=== PATIENT | female | born 2000 | race Caucasian/White ===

== ENCOUNTER 2019-04-06 09:03 | Inpatient (IN) | payer BC, OTHER ==
[~2019-04-06] VITALS: Ht 177.8 cm; Wt 123.0 kg
[~2019-04-06 09:03] MED LIST: ABILIFY5 MG PO; BUSPIRONE HCL10 MG PO; BUSPIRONE HCL5 MG PO; DOXYCYCLINE HY100 MG PO; FLUOXETINE HCL20 MG PO; IBUPROFEN600 MG PO; LEVOTHYROXINE25 MCG PO; MULTI VITAMIN1 EACH PO; ONDANSETRON ODT8 MG PO; PENICILLIN V P250 MG PO; VITAMIN B COMP1 EACH PO; ZYRTEC10 MG PO
[2019-04-07] MEDS ORDERED: VITAFOL-OB+DHA1 EACH PO (01:03)
[2019-04-07] MEDS ORDERED: IRON325 M1 PO (01:05)
--- NOTE | 2019-04-07 07:02 | PR ---
[facility] [address], [place] [address] Signed Progress Notes IP Datetime Report Generated by CPN: 04/07/2019 07:02 PROGRESS NOTES: [id number] Impression: Reassuring heart rate Plan: Continue present management; Cervical Ripening Informed Consent Obtain: Induction of Labor VITAL SIGNS: [id number] Vital Signs: Reviewed; Within Normal Limits EXAM: [id number] Dilatation: 1.0 Effacement: 25 Station: -3 Uterine Contractions: irritability MEMBRANES: [id number] Comments: Pt is pleasant 18 yr old w/ IUP @ 39w6d who presents to L_D for scheduled EIOL. complicated by obesity, anxiety/mood disorder, Rh neg s/p Rhogam, and GBS positive. Pt presented for cervical ripening and has received cytotec. Cervix not yet ripe. +FM, no bleeding, no loss of fluids. Tolerating induction well. Plan: continue cervical ripening. Continue light diet until active labor. Will start PCN per protocol when in active labor. All questions answered Fetus A: [id number] FHR Baseline: 125 Variability: Moderate 6-25bpm Accelerations: 15X15 Decelerations: None FHR Category: Category I Comments on Fetus A: No evidence of metabolic acidosis Fetus B: [id number] Signing Physician: Tiny Luque DO Copies: ~ *Electronically Signed* 04/07/19 0702 TINY LUQUE DO PATIENT NAME: BRUCE GOLDMAN PROGRESS NOTE DATE OF : 98 PHYSICIAN: TINY LUQUE DO [facility] #: [id number] REPORT IS CONFIDENTIAL AND NOT TO BE RELEASED WITHOUT AUTHORIZATION
--- NOTE | 2019-04-07 13:54 | PR ---
[facility] [address] [facility] [place], [place] [address] Signed Progress Notes IP Datetime Report Generated by CPN: 04/07/2019 13:54 PROGRESS NOTES: [id number] Impression: Reassuring heart rate Plan: Anesthesia consult Informed Consent Obtain: Induction of Labor VITAL SIGNS: [id number] Vital Signs: Reviewed; Within Normal Limits EXAM: [id number] Dilatation: 1.5 Effacement: 50 Station: -2 Uterine Contractions: irritability MEMBRANES: [id number] Comments: Pt becoming more uncomfortable w/ induction. Strongly requesting epidural. Anesthesia notified and here to review w/ pt. Fetus A: [id number] FHR Baseline: 120 Variability: Moderate 6-25bpm Accelerations: 15X15 Decelerations: None FHR Category: Category I Comments on Fetus A: No evidence of metabolic acidosis Fetus B: [id number] Signing Physician: Tiny Luque DO Copies: ~ *Electronically Signed* 04/07/19 1354 TINY LUQUE DO PATIENT NAME: KEV GOLDMANLY GANESH PROGRESS NOTE DATE OF : 98 PHYSICIAN: TINY LUQUE DO [facility] #: [id number] REPORT IS CONFIDENTIAL AND NOT TO BE RELEASED WITHOUT AUTHORIZATION
--- NOTE | 2019-04-07 21:43 | PR ---
[facility] [address] [facility] [place], [place] [address] Signed Progress Notes IP Datetime Report Generated by CPN: 04/07/2019 21:43 PROGRESS NOTES: [id number] Impression: Normal progression of labor Procedures: Sterile Vag Exam Plan: Anticipate Vaginal Delivery Informed Consent Obtain: Vaginal Delivery VITAL SIGNS: [id number] Vital Signs: Reviewed; Within Normal Limits EXAM: [id number] Dilatation: 10.0 Effacement: 100 Station: 2 Uterine Contractions: q2-3 minutes MEMBRANES: [id number] Comments: Pt seen and examined. Pt has made rapid cervical change and is now complete +2 station. Comfortable w/ epidural. FHT reassuring. Prepare for . Reviewed 2nd stage of labor w/ pt and all questions answered Fetus A: [id number] FHR Baseline: 125 Variability: Moderate 6-25bpm Accelerations: 15X15 Decelerations: Early; Variable FHR Category: Category II Presentation: Vertex Comments on Fetus A: No evidence of metabolic acidosis Fetus B: [id number] Signing Physician: Tiny Luque DO Copies: ~ *Electronically Signed* 04/07/19 2143 TINY LUQUE DO PATIENT NAME: BRUCE GOLDMAN PROGRESS NOTE DATE OF : 98 PHYSICIAN: TINY LUQUE DO RPT #: [id number] REPORT IS CONFIDENTIAL AND NOT TO BE RELEASED WITHOUT AUTHORIZATION
--- NOTE | 2019-04-08 11:28 | PR ---
[facility] [address] [facility] [place], [place] [address] Signed PP Progress Notes Datetime Report Generated by CPN: 04/08/2019 11:28 SUBJECTIVE: [id number] Pain: Within normal limits Nausea/Vomiting: Denies Flatus: Yes Bowel Movement: No Vital Signs: [id number] EXAM: [id number] Cardiovascular: Normal Respiratory: Normal Abdomen/Uterus: Normal Lochia: Normal Vulva/Perineum: Not Done Breasts: Not Done CVA Tenderness: Normal Extremities: Normal Incision: Not Applicable Progress: Normal Exam Comments: Fundus firm U-2 nontender IMPRESSION/PLAN/PROCEDURES: [id number] Impression: Normal progression Plan: Continue present management Progress Notes: Pt seen and examined. Doing well. Ambulating voiding and tolerating full diet. well. Pain and bleeding minimal. No other questions or concerns. Continue routine pp care. Hgb 11.8. Rhogam prior to discharge (baby A+) Signing Physician: Tiny Luque DO Copies: ~ *Electronically Signed* 04/08/19 1128 TINY LUQUE DO PATIENT NAME: SUSIBRUCE PROGRESS NOTE DATE OF : 98 PHYSICIAN: TINY LUQUE DO RPT #: [id number] REPORT IS CONFIDENTIAL AND NOT TO BE RELEASED WITHOUT AUTHORIZATION
--- NOTE | 2019-04-09 08:22 | PR ---
[facility] [address] [facility] [place], [place] [address] Signed PP Progress Notes Datetime Report Generated by CPN: 04/09/2019 08:22 SUBJECTIVE: [id number] Pain: Within normal limits Nausea/Vomiting: Denies Flatus: Yes Bowel Movement: No Vital Signs: [id number] Vital Signs: Reviewed; Within Normal Limits EXAM: [id number] Cardiovascular: Normal Respiratory: Normal Abdomen/Uterus: Normal Lochia: Normal Vulva/Perineum: Not Done Breasts: Not Done CVA Tenderness: Normal Extremities: Normal Incision: Not Applicable Progress: Normal Exam Comments: Fundus firm U -2 nontender. Hgb 11.8 IMPRESSION/PLAN/PROCEDURES: [id number] Impression: Normal progression Plan: Discharge Progress Notes: Pt seen and examined. Doing well. Ambulating, voiding, and tolerating full diet. Pain and lochia minimal. improved with some extra coaching by RN. Hooper d/pernell home today. F/U Dr. Luque 2 wks Signing Physician: Tiny Luque DO Copies: ~ *Electronically Signed* 04/09/19 0822 TINY LUQUE DO PATIENT NAME: BRUCE GOLDMAN PROGRESS NOTE DATE OF : 98 PHYSICIAN: TINY LUQUE DO RPT #: [id number] REPORT IS CONFIDENTIAL AND NOT TO BE RELEASED WITHOUT AUTHORIZATION
== END 2019-04-09 12:20 | disposition home or self-care (01) | DRG 806 ==
LOC: FBC 04-07 00:01
PROVIDERS: ADMIT Obstetrics & Gynecology
PROC: 10E0XZZ Delivery of Products of Conception, External Approach (ICD-10-PCS; principal; 2019-04-07)
PROC: 0KQM0ZZ Repair Perineum Muscle, Open Approach (ICD-10-PCS; 2019-04-07)
PROC: 3E0P7VZ Introduction of Hormone into Female Reproductive, Via Natural or Artificial Opening (ICD-10-PCS; 2019-04-07)
PROC: 00HU33Z Insertion of Infusion Device into Spinal Canal, Percutaneous Approach (ICD-10-PCS; 2019-04-07)
PROC: 3E0R3BZ Introduction of Anesthetic Agent into Spinal Canal, Percutaneous Approach (ICD-10-PCS; 2019-04-07)
PROC: 3E0234Z Introduction of Serum, Toxoid and Vaccine into Muscle, Percutaneous Approach (ICD-10-PCS; 2019-04-08)
DX: O62.3 Precipitate labor (principal); O99.324 Drug use complicating childbirth; Z37.0 Single live birth; O70.1 Second degree perineal laceration during delivery; Z3A.39 39 weeks gestation of pregnancy; O99.824 Streptococcus B carrier state complicating childbirth; O76 Abnormality in fetal heart rate and rhythm complicating labor and delivery; O99.214 Obesity complicating childbirth; E66.9 Obesity, unspecified; O99.344 Other mental disorders complicating childbirth; F41.9 Anxiety disorder, unspecified; O99.284 Endocrine, nutritional and metabolic diseases complicating childbirth; E03.9 Hypothyroidism, unspecified; F12.90 Cannabis use, unspecified, uncomplicated; O26.893 Other specified pregnancy related conditions, third trimester; Z67.11 Type A blood, Rh negative; Z87.891 Personal history of nicotine dependence; Z88.1 Allergy status to other antibiotic agents
CPT/HCPCS: 01960; 36415; 83030; 85027; 86850; 86900; 86901; J2405; J2540; J2590; J2790; J2795; J7060; J7120

== ENCOUNTER 2020-10-18 03:32 | Emergency (ER) | payer BC ==
[~2020-10-18] VITALS: Ht 177.8 cm; Wt 108.9 kg
[~2020-10-18 03:32] MED LIST changes: +IRON325 M1 PO; +VITAFOL-OB+DHA1 EACH PO
--- OUTSIDE RECORDS SUMMARY | 2020-10-18 03:34 | XMS ---
PreManage Notification: BRUCE GOLDMAN Security Acetylene Burner Events No recent Security Events currently on file [facility] There are no care providers on record at this time. Bebo has no Care Guidelines for this patient. Jeanne VISIT COUNT (12 MO.) 1 [facility] TOTAL 1 NOTE: Visits indicate total known visits. ED/UCC VISIT TRACKING (12 MO.) 10/18/2020 03:33 [facility] [place] TYPE: Emergency COMPLAINT: - ABDOMINAL PAIN INPATIENT VISIT TRACKING (12 MO.) No inpatient visits to display in this time frame [email or web address]
[2020-10-18] MEDS ORDERED: LITHIUM CARBON300 M2 PO (04:04)
[2020-10-18] MEDS ORDERED: FLUOXETINE HCL40 MG PO (04:04)
== END 2020-10-18 07:42 | disposition home or self-care (01) ==
LOC: ED 03:32
DX: N83.202 Unspecified ovarian cyst, left side (principal); E03.9 Hypothyroidism, unspecified; F17.200 Nicotine dependence, unspecified, uncomplicated; Z88.8 Allergy status to other drugs, medicaments and biological substances; Z88.1 Allergy status to other antibiotic agents; Z91.010 Allergy to peanuts; Z79.899 Other long term (current) drug therapy
CPT/HCPCS: 74177; 76830; 76856; 80053; 81001; 83690; 84703; 85025; 87491; 87591; 96372; 99284-25; J1885; Q9967

== ENCOUNTER 2020-11-03 02:46 | Emergency (ER) | payer BC, OTHER ==
[~2020-11-03] VITALS: Ht 177.8 cm; Wt 108.9 kg
[~2020-11-03 02:46] MED LIST changes: +FLUOXETINE HCL40 MG PO; +LITHIUM CARBON300 M2 PO
--- OUTSIDE RECORDS SUMMARY | 2020-11-03 02:48 | XMS ---
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 ELester VISIT COUNT (12 MO.) 2 [facility] TOTAL 2 NOTE: Visits indicate total known visits. ED/UCC VISIT TRACKING (12 MO.) 11/03/2020 02:47 [facility] [place] TYPE: Emergency COMPLAINT: - MEDICAL CLEARANCE 10/18/2020 03:33 [facility] [place] TYPE: Emergency COMPLAINT: - ABDOMINAL PAIN DIAGNOSES: - Lower abdominal pain, unspecified - Allergy status to other drugs, medicaments and biological substances - Other intermediate manager (current) drug therapy - Hypothyroidism, unspecified - Allergy to peanuts - Unspecified ovarian cyst, left side - Allergy status to other antibiotic agents - Nicotine dependence, unspecified, uncomplicated INPATIENT VISIT TRACKING (12 MO.) No inpatient visits to display in this time frame [email or web address]
[2020-11-03] MEDS ORDERED: LITHOBID300 MG PO (08:24)
== END 2020-11-03 11:00 | disposition home or self-care (01) ==
LOC: ED 02:46
DX: F32.9 Major depressive disorder, single episode, unspecified (principal); R45.851 Suicidal ideations; E03.9 Hypothyroidism, unspecified; F17.200 Nicotine dependence, unspecified, uncomplicated; Z88.8 Allergy status to other drugs, medicaments and biological substances; Z88.1 Allergy status to other antibiotic agents; Z91.010 Allergy to peanuts; Z79.899 Other long term (current) drug therapy
CPT/HCPCS: 80053; 80176; 81001; 84443; 85025; 99285

== ENCOUNTER 2024-02-15 10:43 | Emergency (ER) | payer OTHER ==
[~2024-02-15] VITALS: Ht 177.8 cm; Wt 82.0 kg
[~2024-02-15 10:43] MED LIST changes: +DEXTROAMP-AMPHE20 MG PO; +HYDROXYZINE HCL25 MG PO; +LITHOBID300 MG PO; +NAPROSYN500 MG PO
--- OUTSIDE RECORDS SUMMARY | 2024-02-15 10:46 | XMS ---
PreManage Notification: BRUCE GOLDMAN Security Impregnator And Drier Events No recent Security Events currently on file CRITERIA MET - [employer] CARE PROVIDERS ESTEBAN ABBOTT Physician Diesel Mechanic Construction 10/19/2020-Current PHONE: Unknown -Ramiro- Dentist: Licensing Registration Examiner [facility] PHONE: [phone] Bebo has no Care Guidelines for this patient. Jeanne VISIT COUNT (12 MO.) Scott Thomas TOTAL 3 NOTE: Visits indicate total known visits. ED/UCC VISIT TRACKING (12 MO.) 02/15/2024 10:43 [facility] [place] TYPE: Emergency COMPLAINT: - LACERATION FOREARM 01/13/2024 21:11 [facility] [place] TYPE: Emergency COMPLAINT: - POSS PANIC ATTACK DIAGNOSES: - Allergy status to other drugs, medicaments and biological substances - Nicotine dependence, unspecified, uncomplicated - Panic disorder [episodic paroxysmal anxiety] - Reaction to severe stress, unspecified 11/26/2023 12:[address] [facility] [place] TYPE: Emergency COMPLAINT: - R RIB PAIN/ NO INJ DIAGNOSES: - Allergy status to other antibiotic agents - Allergy status to other drugs, medicaments and biological substances - Hidradenitis suppurativa - Hypothyroidism, unspecified - Nicotine dependence, unspecified, uncomplicated - Other cold working inspector (current) drug therapy - Other specified injuries of thorax, initial encounter - Overexertion from strenuous movement or load, initial encounter - Pleurodynia INPATIENT VISIT TRACKING (12 MO.) No inpatient visits to display in this time frame [email or web address]
[2024-02-15] MEDS ORDERED: FLUVOXAMINE MAL50 MG PO (10:52)
[2024-02-15] MEDS ORDERED: AMPHETAMINE SAL10 MG PO (10:53)
[2024-02-15 11:14] VITALS: BP 133/72
== END 2024-02-15 11:14 | disposition home or self-care (01) ==
LOC: ED 10:43
DX: S51.812A Laceration without foreign body of left forearm, initial encounter (principal); R45.87 Impulsiveness; E03.9 Hypothyroidism, unspecified; F41.9 Anxiety disorder, unspecified; F43.12 Post-traumatic stress disorder, chronic; G47.30 Sleep apnea, unspecified; F60.3 Borderline personality disorder; F17.200 Nicotine dependence, unspecified, uncomplicated; W26.0XXA Contact with knife, initial encounter; Z88.8 Allergy status to other drugs, medicaments and biological substances; Z88.1 Allergy status to other antibiotic agents; Z79.899 Other long term (current) drug therapy
CPT/HCPCS: 12002; 99283

== ENCOUNTER 2024-02-20 12:20 | Emergency (ER) | payer OTHER ==
[~2024-02-20] VITALS: Ht 177.8 cm; Wt 87.0 kg
[~2024-02-20 12:20] MED LIST changes: +AMPHETAMINE SAL10 MG PO; +FLUVOXAMINE MAL50 MG PO
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
[2024-02-20 13:04] LABS: BASOPHILS 0.4 % (0-2); EOSINOPHILS 1.6 % (0-6); HEMATOCRIT 38.2 % (35.0-50.0); HEMOGLOBIN 13.1 g/dL (12.0-18.0); LYMPHOCYTES 25.8 % (24-44); MCH 31.5 (27-36); MCHC 34.2 g/dl (30-36); MCV 92.3 fl (81-99); MONOCYTES 8.3 % (0-12); NEUTROPHILS 63.9 % (39-80); PLATELET COUNT 252 K/uL (140-440); RBC 4.14 M/ul (4.3-5.7); RDW 13.5 (10.5-15.0)
[2024-02-20 13:24] LABS: AMPHETAMINES, URINE NEGATIVE (NEGATIVE); BARBITURATES, URINE NEGATIVE (NEGATIVE); BENZODIAZEPINE, URINE NEGATIVE (NEGATIVE); BUPRENORPHINE, URINE NEGATIVE (NEGATIVE); CANNABINOID, URINE POSITIVE (NEGATIVE); COCAINE, URINE NEGATIVE (NEGATIVE); ECSTASY, URINE NEGATIVE (NEGATIVE); FENTANYL, URINE NEGATIVE (NEGATIVE); METHADONE, URINE NEGATIVE (NEGATIVE); OPIATES, URINE NEGATIVE (NEGATIVE); OXYCODONE, URINE NEGATIVE (NEGATIVE); PHENCYCLIDINE, URINE NEGATIVE (NEGATIVE)
[2024-02-20 13:27] LABS: ACETAMINOPHEN 0 ug/mL (10-30); ALCOHOL, MEDICAL <3 ng/dL (<3); SALICYLATE 4.5 mg/dL (2.8-20.0); TSH, 3RD GENERATION 0.637 uIU/mL (0.358-3.740)
[2024-02-20 13:28] LABS: BUN/CREATININE RATIO 14.49 (6.0-28.6); CALCIUM 8.5 mg/dL (8.5-10.1); CREATININE, SERUM 0.69 mg/dL (0.55-1.02)
[2024-02-20 13:30] LABS: BILIRUBIN, URINE NEGATIVE (negative); BLOOD/HGB, URINE NEGATIVE (Negative); KETONE, URINE NEGATIVE (Negative); LEUK ESTERASE, URINE NEGATIVE (negative); NITRITE, URINE NEGATIVE (negative)
[2024-02-20 13:46] LABS: ALBUMIN 4.3 g/dL (3.4-5.0); ALBUMIN/GLOBULIN RATIO 1.39 (1.1-2.4); BILIRUBIN, TOTAL 0.6 ng/dL (0.2-1.0); PROTEIN, TOTAL 7.4 g/dL (6.4-8.2)
[2024-02-20] MEDS ORDERED: NICOTINE 14 MG/24 HR 1 EA TDSY TD SCH (14:01)
[2024-02-20] MEDS ORDERED: TRAZODONE HCL 100 MG TAB PO PRN (14:15)
[2024-02-20] MEDS ORDERED: hydrOXYzine pamoate 50 MG CAP PO PRN (14:15)
[2024-02-22 06:38] VITALS: BP 123/87
== END 2024-02-22 06:42 ==
LOC: ED 12:20
PROVIDERS: Emergency Medicine
DX: F43.10 Post-traumatic stress disorder, unspecified (principal); F41.1 Generalized anxiety disorder; F25.0 Schizoaffective disorder, bipolar type; R45.851 Suicidal ideations; F17.200 Nicotine dependence, unspecified, uncomplicated; Z88.8 Allergy status to other drugs, medicaments and biological substances
CPT/HCPCS: 36415; 80053; 80307; 81003; 84443; 84703; 85025; 99285; G0480

== ENCOUNTER 2025-08-17 11:29 | Emergency (ER) | payer OTHER ==
[~2025-08-17] VITALS: Ht 177.8 cm; Wt 95.8 kg
[2025-08-17 12:43] LABS: BASOPHILS 0.2 % (0.1-1.2); EOSINOPHILS 0.1 % (0.7-5.8); LYMPHOCYTES 15.8 % (19.3-51.7); MCH 31.7 PG (25.6-32.2); MCHC 34.2 g/dL (32.2-35.5); MCV 92.7 fL (79.4-94.8); MONOCYTES 6.8 % (4.7-12.5); NEUTROPHILS 77.0 % (34.0-71.1); RBC 3.97 M/uL (3.93-5.22)
[2025-08-17 13:10] LABS: ALCOHOL, MEDICAL <3 ng/dL (<3); ALT (SGPT) 16 U/L (14-59); AST (SGOT) 10 U/L (15-37); GLOMERULAR FILTRATION RATE,EST 138 mL/min (>60); PROTEIN, TOTAL 7.1 g/dL (6.4-8.2); TSH, 3RD GENERATION 1.015 uIU/mL (0.358-3.740); UREA NITROGEN 13 mg/dL (7-18)
[2025-08-17] MEDS ORDERED: OLANZapine 10 MG TAB PO ONE (15:15)
[2025-08-17 20:51] LABS: BLOOD/HGB, URINE NEGATIVE (Negative); KETONE, URINE SMALL (Negative); LEUK ESTERASE, URINE NEGATIVE (negative); NITRITE, URINE NEGATIVE (negative)
[2025-08-17 21:00] LABS: AMPHETAMINES, URINE NEGATIVE (NEGATIVE); BARBITURATES, URINE NEGATIVE (NEGATIVE); BENZODIAZEPINE, URINE NEGATIVE (NEGATIVE); CANNABINOID, URINE POSITIVE (NEGATIVE); COCAINE, URINE NEGATIVE (NEGATIVE); ECSTASY, URINE NEGATIVE (NEGATIVE); FENTANYL, URINE NEGATIVE (NEGATIVE); METHADONE, URINE NEGATIVE (NEGATIVE); OPIATES, URINE NEGATIVE (NEGATIVE); OXYCODONE, URINE NEGATIVE (NEGATIVE); PHENCYCLIDINE, URINE NEGATIVE (NEGATIVE)
[2025-08-17] MEDS ORDERED: OLANZapine 10 MG TABDIS PO SCH (21:00)
[2025-08-18] MEDS ORDERED: OLANZapine 10 MG TAB PO SCH (09:00)
[2025-08-19 02:46] LABS: CORONAVIRUS COVID-19 AG NEGATIVE (NEGATIVE)
[2025-08-20 07:17] VITALS: BP 126/78
== END 2025-08-20 07:17 ==
LOC: ED 11:29
PROVIDERS: Emergency Medicine; Family Medicine
DX: F23 Brief psychotic disorder (principal); Z04.6 Encounter for general psychiatric examination, requested by authority; F43.10 Post-traumatic stress disorder, unspecified; E03.9 Hypothyroidism, unspecified; G47.30 Sleep apnea, unspecified; F17.200 Nicotine dependence, unspecified, uncomplicated; Z79.899 Other long term (current) drug therapy; Z88.1 Allergy status to other antibiotic agents; Z88.8 Allergy status to other drugs, medicaments and biological substances
CPT/HCPCS: 36415; 80053; 80307; 81003; 84443; 84703; 85025; 99285; A9270; G0480